=== PATIENT | female | born 1960 | race American Indian/Alaskan Native ===

== ENCOUNTER 2022-03-04 09:37 | Outpatient (CLI) | payer OTHER ==
--- NOTE | 2022-03-04 19:00 | XRay Report ---
Knee bilateral 4 views INDICATION: Bilateral knee pain IMPRESSION: No acute findings identified. The joint spaces appear relatively well-maintained. No sign ificant knee effusion. Signer Name: Canelo Robins MD Signed: 03/04/2022 6:55 PM Workstation Name: [email or web address]
== END 2022-03-04 09:38 | disposition home or self-care (01) ==
LOC: XRAY 09:37
PROVIDERS: ATTEND Internal Medicine
DX: M25.562 Pain in left knee (principal); M25.561 Pain in right knee